=== PATIENT | female | born 1950 | race Caucasian/White ===

== ENCOUNTER 2022-07-24 08:52 | Day surgery (SDC) | payer MEDICARE, SELFPAY ==
[2022-07-24] VITALS (8 sets, daily range): BP systolic 140–166; BP diastolic 70–95; PULSE 60–63; RESP 16–18; TEMP 36.1–36.8; O2SAT 97–98; BMI 27.4
[2022-07-24 10:21] LABS: POC Glucose,Bedside 207 (70-110)
== END 2022-07-24 11:22 | disposition home or self-care (01) ==
PROVIDERS: PCP Family Medicine; Visit Provider Ophthalmology
DX: H25.813 Combined forms of age-related cataract, bilateral (principal); E11.9 Type 2 diabetes mellitus without complications; Z79.899 Other long term (current) drug therapy
CPT/HCPCS: 66984; 82962; V2632

== ENCOUNTER 2022-08-14 08:11 | Day surgery (SDC) | payer MEDICARE, SELFPAY ==
[2022-08-10 13:35] VITALS: BMI 27.6
[2022-08-14] VITALS (7 sets, daily range): BP systolic 156–175; BP diastolic 65–81; PULSE 55–58; RESP 16–18; TEMP 36.1–36.4; O2SAT 97–100
[2022-08-14 10:38] LABS: POC Glucose,Bedside 130 (70-110)
== END 2022-08-14 11:44 | disposition home or self-care (01) ==
PROVIDERS: PCP Family Medicine; Visit Provider Ophthalmology
DX: H25.813 Combined forms of age-related cataract, bilateral (principal); Z79.899 Other long term (current) drug therapy
CPT/HCPCS: 66984; 82962; V2632

== ENCOUNTER 2023-12-02 13:17 | Emergency (ER) | payer MEDICARE, SELFPAY ==
--- NOTE | 2023-12-02 | ECG_ITS ---
APPROVED REPORT Exam: Resting ECG HR:52 bpm ECG Measurements Heart Rate 52 AXES MT 140 P 40 QRSd 134 QRS -36 QT 478 T 76 QTc 459 Conclusion SINUS BRADYCARDIA WITH SINUS ARRHYTHMIA LEFT AXIS DEVIATION [QRS AXIS < -30] INTRAVENTRICULAR CONDUCTION DELAY [130+ ms QRS DURATION] LEFT VENTRICULAR HYPERTROPHY AND ST-T CHANGE [VOLTAGE CRITERIA PLUS ST/T ABNORMALITY] POSSIBLE LATERAL MYOCARDIAL INFARCTION , OF INDETERMINATE AGE [30 ms Q WAVE IN I/aVL/V5/V6] ABNORMAL ECG Electronically signed by : LEENA BERKOWITZ, 12/03/2023 03:47:29
[2023-12-02 13:17] VITALS: BP 160/90; PULSE 69; RESP 13; TEMP 36.6; O2SAT 96; BMI 27.4
--- NOTE | 2023-12-02 13:36 | XR_ITS ---
FINAL REPORT CLINICAL HISTORY: syncope COMPARISON: None FINDINGS: A single portable view of the chest was obtained. The heart size and pulmonary vascularity are within normal limits. The mediastinum is within normal limits. No acute pulmonary abnormality is identified. The bony thorax is intact. IMPRESSION: No active cardiopulmonary disease. Reviewed, Interpreted and Dictated by Aaron Sidhu III, MD Transcribed by Lili Pedersen Authenticated and [facility]
--- NOTE | 2023-12-02 13:36 | CT_ITS ---
FINAL REPORT CLINICAL HISTORY: syncope COMPARISON: None FINDINGS: Axial CT images of the cervical spine were obtained without contrast. Sagittal and coronal reformatted images were also obtained. This study was performed with techniques to keep radiation doses as low as reasonably achievable (ALARA). Individualized dose reduction techniques using automated exposure control or adjustment of mA and/or kV according to the patient''s size were employed. There is no evidence of fracture or dislocation. There is moderate degenerative change. There is mild anterolisthesis of C4 on C5. Neural foraminal narrowing is noted at C5-6 and C6-7. There is no evidence of canal stenosis. Diffuse thyroid enlargement is noted of uncertain etiology and could represent goiter or thyroiditis. Limited images of the upper thorax are unremarkable. IMPRESSION: No fracture or acute bony abnormality identified. Reviewed, Interpreted and Dictated by Aaron Sidhu III, MD Transcribed by Lili Pedersen Authenticated and [facility]
--- NOTE | 2023-12-02 13:36 | CT_ITS ---
FINAL REPORT CLINICAL HISTORY: syncope COMPARISON: None FINDINGS: Axial images of the head were obtained without contrast. Coronal reformatted images were also obtained. This study was performed with techniques to keep radiation doses as low as reasonably achievable (ALARA). Individualized dose reduction techniques using automated exposure control or adjustment of mA and/or kV according to the patient''s size were employed. There is generalized age-appropriate atrophy. Periventricular low-attenuation areas are seen consistent with mild chronic ischemic changes. There is a 17 mm partially calcified mass in the inferior left temporal region, likely representing a partially calcified meningioma. This could be further evaluated with MRI head with contrast. There is no evidence of acute infarct. There is no evidence of shift of the midline structures. There are several bilateral skull lytic lesions of uncertain etiology worrisome for myeloma or metastatic disease. IMPRESSION: Left temporal mass worrisome for a partially calcified meningioma. Recommend MRI head with contrast. Scattered skull lytic lesions worrisome for myeloma or metastases. Atrophy and mild periventricular chronic ischemic changes. Reviewed, Interpreted and Dictated by Aaron Sidhu III, MD Transcribed by Lili Pedersen Authenticated and [facility]
[2023-12-02 13:45] LABS: Basophils # 0.1 K/mm3 (0-0.2); Basophils % 1.3 % (0.1-2.0); Eosinophils # 0.3 K/mm3 (0.0-0.4); Eosinophils % 3.2 % (0.1-12.0); Hematocrit 43.6 % (37.0-47.0); Hemoglobin 14.4 g/dL (12.2-16.2); Lymphocytes # 4.3 K/mm3 (0.7-4.5); Lymphocytes % 45.7 % (10-50); Mean Corpuscular HGB Conc 32.9 g/dL (31.8-35.4); Mean Corpuscular Hemoglobin 28.3 pg (27.0-31.2); Mean Corpuscular Volume 86.1 fl (81-99); Mean Platelet Volume 8.6 fl (7.4-10.4); Monocytes # 0.7 K/mm3 (0.1-1.0); Monocytes % 7.8 % (1.7-9.3); Neutrophils # 3.9 K/mm3 (1.8-7.8); Platelet Count 399 K/mm3 (142-424); Red Blood Count 5.07 M/mm3 (4.20-5.40); Red Cell Distribution Width 14.7 % (11.5-17.5); White Blood Count 9.3 K/mm3 (4.8-10.8)
--- NOTE | 2023-12-02 13:48 | PC.NURSE ---
Pt gone to RAD via stretcher
[2023-12-02 13:49] LABS: Chloride 104 mmol/L (98-107); Potassium 4.4 mmoL/L (3.5-5.1); Sodium 138 mmol/L (136-145)
[2023-12-02 13:52] LABS: Anion Gap 14.4 mEq/L (5-15); Blood Urea Nitrogen 12 mg/dl (7-17); Calcium 10.1 mg/dl (8.4-10.2); Carbon Dioxide 24 mmol/L (22.0-30.0); Creatinine Clearance Estimated 56 mL/min (50-200); Estimated Glomerular Filt Rate 82 ml/min (>60); GFR (African American) 99 ML/MIN (>60)
[2023-12-02 13:56] LABS: Glucose 31 mg/dl (74-100)
--- NOTE | 2023-12-02 13:58 | PC.NURSE ---
lab called with critical glucose this result is based on blood from EMS , WHICH was treated by EMS
[2023-12-02 14:01] VITALS: BP 180/78; PULSE 60; O2SAT 98
[2023-12-02 14:05] LABS: Troponin I < 0.01 ng/ml (0.00-0.034)
--- NOTE | 2023-12-02 14:33 | HMH.EDGENADL ---
Discharge Plan Disposition Patient Disposition: Home, Self-Care Chief Complaint: Fall Prescriptions Prescriptions: No Action atorvastatin 20 mg Tablet 20 mg PO DAILY sucralfate 1 gram Tablet 1 g PO BID tramadol 50 mg Tablet 50 mg PO TID PRN (Reason: Pain) propranolol 40 mg Tablet 40 mg PO BID amlodipine 10 mg Tablet 10 mg PO DAILY paroxetine HCl 20 mg Tablet 20 mg PO DAILY pantoprazole 40 mg Tablet,Delayed Release (Dr/Ec) 40 mg PO DAILY hydroxyzine HCl 25 mg Tablet 25 mg PO QID PRN (Reason: Anxiety) levothyroxine 200 mcg Tablet 1 mcg PO DAILY fluticasone propionate 50 mcg/actuation [place],Suspension 1 spray INTRANASAL BID Rx Instructions: administer into each nostril insulin aspart U-100 [Novolog FlexPen U-100 Insulin] 100 unit/mL (3 mL) Insulin Pen 15 unit SQ TID Vitamin D3 100 mcg (4,000 unit) Capsule 100 mcg PO DAILY Referrals Follow up/Referrals: José Miguel Oconnor [Primary Care Provider] - See instructions Clinical Impressions Clinical Impression: Hypoglycemia, Syncope Discharge ED Provider: Jerri Dyer General Adult HPI General Chief complaint: Fall Stated complaint: Fall Time Seen by Provider: 12/02/23 14:02 Mode of Arrival: EMS Source of Information: Patient and EMS Limitations: No Limitations Description of Symptoms (Recalled from ER Triage Doc. by RN): pt presents to ED via [facility]. pt reports that she remembers walking out of [facility] and that is all. EMS reports that they received a call about pt fall and unresponsive. when EMS arrived pt was responsive but lethargic. pt glucose was 30 upon EMS check, pt was given 1 amp of D50. History of Present Illness HPI narrative: Patient is a 73-year-old female presenting today with altered mental status and a syncopal episode after taking her insulin this morning and not eating. EMS found her at [facility] and she was found to have a glucose of 30 was given an amp of D50 with significant improvement in her symptoms. She denies having any other symptoms that preceded this today including nausea vomiting diarrhea fevers chills etc. Related Data Home Medications Medication Instructions Recorded Confirmed amlodipine 10 mg tablet 10 mg PO DAILY BP 07/24/22 08/10/22 atorvastatin 20 mg tablet 20 mg PO DAILY Cholesterol 07/24/22 08/10/22 cholecalciferol (vitamin D3) 100 100 mcg PO DAILY Supplement 07/24/22 08/10/22 mcg (4,000 unit) capsule fluticasone propionate 50 1 spray intranasal BID allergies 07/24/22 08/10/22 mcg/actuation nasal spray,suspension hydroxyzine HCl 25 mg tablet 25 mg PO QID PRN Anxiety 07/24/22 08/10/22 insulin aspart U-100 100 unit/mL 15 unit SQ TID Diabetes 07/24/22 08/10/22 (3 mL) subcutaneous pen (Novolog FlexPen U-100 Insulin aspart) levothyroxine 200 mcg tablet 1 mcg PO DAILY hypothyroidism 07/24/22 08/10/22 pantoprazole 40 mg tablet,delayed 40 mg PO DAILY acid reflux 07/24/22 08/10/22 release paroxetine HCl 20 mg tablet 20 mg PO DAILY Depression 07/24/22 08/10/22 propranolol 40 mg tablet 40 mg PO BID bp 07/24/22 08/10/22 sucralfate 1 gram tablet 1 g PO BID stomach 07/24/22 08/10/22 tramadol 50 mg tablet 50 mg PO TID PRN Pain 07/24/22 08/10/22 Allergies Allergy/AdvReac Type Severity Reaction Status Date / Time No Known Allergies Allergy Verified 08/10/22 13:34 [facility] Disclaimer: The information contained in this section may have been updated after the patient was seen, as this information can be updated by other users. Medical History (Updated 12/02/23 @ 14:41 by Jerri Dyer MD) Hypothyroid Hypertension Surgical History History of cholecystectomy History of hysterectomy Family History Other Family history of cancer Social History Smoking Status: Former smoker alcohol intake: never current occupational status: retired Travel in the last 8 weeks: None ROS Obtained: Yes All systems reviewed & no additional complaints except as documented Physical Exam General General appearance: alert and in no apparent distress Respiratory Respiratory exam: Present normal lung sounds bilaterally; Absent respiratory distress Cardiovascular Cardiovascular exam: Present regular rate and normal rhythm Abdominal Exam Abdominal exam: Present soft; Absent distention or tenderness Neurological Exam Neurological exam: Present alert, oriented X3, CN II-XII intact, normal gait and other; Absent motor sensory deficit Medical Decision Making Karel Inquiry Pt receiving controlled substance: No Vital Signs: 12/02/23 13:17 Temperature 97.9 F Temperature Source Oral Pulse Rate [Left Radial] 69 Respiratory Rate 13 Blood Pressure [Right Arm] 160/90 H Blood Pressure Mean [Right Arm] 113 02 Sat by Pulse Oximetry 96 Oxygen Delivery Method Room Air Lab Data Lab results reviewed: Yes I reviewed the patient's lab results. Lab Results 12/02/23 13:20: WBC 9.3, RBC 5.07, Hgb 14.4, Hct 43.6, MCV 86.1, MCH 28.3, MCHC 32.9, RDW 14.7, Plt Count 399, MPV 8.6, Neut % (Auto) 42.0, Lymph % (Auto) 45.7, [place] % (Auto) 7.8, Eos % (Auto) 3.2, Baso % (Auto) 1.3, Neut # (Auto) 3.9, Lymph # (Auto) 4.3, [place] # (Auto) 0.7, Eos # (Auto) 0.3, Baso # (Auto) 0.1, Sodium 138, Potassium 4.4, Chloride 104, Carbon Dioxide 24, Anion Gap 14.4, BUN 12, Creatinine 0.70, Estimated Creat Clear 56, Estimated GFR 82, Est GFR ( Amer) 99, Glucose 31 L*, Calcium 10.1, Troponin I < 0.01 12/02/23 13:20 12/02/23 13:20 Orders (Tests/Meds): ED MEDICATIONS Generic Name Dose Route Start Last Admin Trade Name Freq PRN Reason Stop Dose Admin Sodium Chloride 10 ml 12/02/23 13:36 Sodium Chloride 0.9% 10ml Flush Syringe IV 01/01/24 13:35 NEEDED PRN Maintain IV Site ORDERS Category Date Time Status CT cervical spine wo con Stat Cat Scan 12/02/23 13:[address] head/brain wo con Stat Cat Scan 12/02/23 13:36 Taken XR chest portable Stat Exams 12/02/23 13:36 Taken Basic Metabolic Panel Stat Lab 12/02/23 13:20 Completed Complete Blood Count Auto Diff Stat Lab 06/03/24 13:20 Completed Troponin I Q3H Lab 12/02/23 16:45 Ordered Troponin I Q3H Lab 12/02/23 19:45 Ordered Troponin I Stat Lab 12/02/23 13:20 Completed Urinalysis-Acute [Urinalysis and Microscopic] Stat Lab 12/02/23 13:38 Ordered Medical Decision Narrative: Patient with above history and physical had a syncopal episode secondary to severe hypoglycemia. She took insulin earlier today and did not eat which is the cause. She otherwise had no other symptoms. EKG was performed on first interpreted shows left axis deviation no acute ischemic changes noted no significant conduction abnormalities is sinus bradycardia but otherwise unremarkable. After glucose an hour into patient's stay her glucose was 120 on my exam she is normal. CT scan of her head and neck were performed given her fall which were unremarkable per my personal interpretation. She was also Nexus negative upon my evaluation and c-collar was removed. She has a normal neurologic exam at this point. Feels well is eating at this point. Will recheck Accu-Chek in 1 more hour and assuming that is stable she will be free to be discharged for outpatient follow-up. Critical Care Critical Care Time Critical Care Time: No
[2023-12-02 14:52] VITALS: BP 151/81; PULSE 61; O2SAT 98
[2023-12-02 14:56] LABS: Microscopic, Urine URINE MICROSCOPIC (MICROSCOPIC)
[2023-12-02 14:58] LABS: Appearance,Urine CLEAR (Clear); Bilirubin,Urine Negative (Negative); Blood, Urine Negative (Negative); Color,Urine YELLOW (Yellow); Glucose,Urine (UA) 1+ (Negative); Ketones,Urine Negative (Negative); Leukocyte Esterase,Urine Negative (Negative); Nitrate,Urine Negative (Negative); PH,Urine 5.5 (5.0-8.5); Protein,Urine TRACE (Negative); Urobilinogen,Urine 0.2 EU/dl (0.2)
--- NOTE | 2023-12-02 15:19 | PC.NURSE ---
Sophia at bs, she will order echo and see what that shows and then charge orders as needed, continue melyssa lopez at this time
[2023-12-02 15:28] LABS: Squamous Epithelial Cell,Urine Occasional #/hpf (0-5)
[2023-12-02 15:31] VITALS: BP 163/78; PULSE 59; RESP 18; TEMP 36.6; O2SAT 99
== END 2023-12-02 15:32 | disposition home or self-care (01) ==
PROVIDERS: Emergency Provider Student in an Organized Health Care Education/Training Program; PCP Family Medicine
DX: E11.649 Type 2 diabetes mellitus with hypoglycemia without coma (principal); R55 Syncope and collapse; E03.9 Hypothyroidism, unspecified; I10 Essential (primary) hypertension; R00.1 Bradycardia, unspecified; Z79.4 Long term (current) use of insulin
CPT/HCPCS: 70450; 71045; 72125; 80048; 81001; 84484; 85025; 93005; 99285